=== PATIENT | female | born 1965 | race Caucasian/White ===

== ENCOUNTER 2021-08-25 15:13 | Emergency (ER) | payer OTHER ==
[~2021-08-25] VITALS: Ht 167.6 cm; Wt 67.1 kg
--- NOTE | 2021-08-25 15:20 | NUR ---
SEEN AND EXAMINED BY DR. CUNNINGHAM.
[2021-08-25] MEDS ORDERED: IV NS 0.9% 1,000 ML BAG IV ONE (15:30)
[2021-08-25] MEDS ORDERED: METF-440 PO (15:51)
[2021-08-25] MEDS ORDERED: NPH,100V SQ (15:51)
[2021-08-25] MEDS ORDERED: ATOR40TA PO (15:51)
[2021-08-25 15:57] LABS: BASOPHILS % (AUTO) 0.2 % (0.0-2.0); EOSINOPHILS % (AUTO) 0.3 % (0.0-6.0); HEMATOCRIT 44 % (33-45); HEMOGLOBIN 15.2 g/dL (11.5-14.8); LYMPHOCYTES # (AUTO) 1.4 K/uL (0.8-4.8); LYMPHOCYTES % (AUTO) 21.1 % (20.0-44.0); MEAN CORPUSCULAR HGB CONC 34 g/dl (31.0-36.0); MEAN CORPUSCULAR VOLUME 87 fL (82-100); MONOCYTES # (AUTO) 0.4 K/uL (0.1-1.30); MONOCYTES % (AUTO) 5.7 % (2.0-12.0); NEUTROPHILS % (AUTO) 72.7 % (43.0-81.0); PLATELET COUNT (AUTO) 183 K/uL (150-450); RED BLOOD CELL COUNT(AUTO) 5.12 MIL/uL (4.0-5.2); WHITE BLOOD COUNT (AUTO) 6.9 K/uL (4.3-11.0)
[2021-08-25 16:08] LABS: CALCIUM, SERUM 8.6 mg/dL (8.5-10.1); CARBON DIOXIDE 30 mmol/L (21-32); CHLORIDE 104 mmol/L (98-107); CREATININE 0.7 mg/dL (0.6-1.3); GLUCOSE 328 mg/dL (74-106); POTASSIUM 3.6 mmol/L (3.5-5.1); SODIUM SERUM 141 mmol/L (136-145); UREA NITROGEN, BLOOD 17 mg/dL (7-18)
[2021-08-25 16:14] LABS: ALANINE AMINOTRANSFERASE 37 U/L (12-78); ALBUMIN 3.7 g/dL (3.4-5.0); ALKALINE PHOSPHATASE 97 U/L (46-116); ASPARTATE AMINOTRANSFERASE 16 U/L (15-37); BILIRUBIN,DIRECT 0.1 mg/dL (0.0-0.2); BILIRUBIN,TOTAL 0.5 mg/dL (0.2-1.0); TOTAL PROTEIN, SERUM 6.9 g/dL (6.4-8.2)
--- NOTE | 2021-08-25 16:57 | NUR ---
Daughter called left her phone # [phone] Deya
--- NOTE | 2021-08-25 17:09 | NUR ---
PATIENT IS AXOX4. ADMITTED FOR DIZZINESS ,STROKE ASSESSMENT DONE.SCORE IS ZERO.
--- NOTE | 2021-08-25 17:23 | NUR ---
PATIENT DAUGHTER NEED TO TALK TO DOCTOR,NUMBER GIVEN TO PATIENT IS READY FOR DISCHARGE.PATIENT SISTER WILL SHOWROOM CONSULTANT THE PATIENT.
[2021-08-25 17:29] VITALS: BP 149/73
--- NOTE | 2021-08-25 17:39 | NUR ---
Patient discharged to home in stable condition. Written and verbal after care instructions given . Patient verbalizes understanding of instruction.work note given as requested.IV removed. Catheter intact and site clear. Pressure and 4x4 applied to site. No bleeding noted.Took all belongings.left via priavte car with sister.
== END 2021-08-25 17:42 | disposition home or self-care (01) ==
LOC: ER 15:39
DX: R42 Dizziness and giddiness (principal); E11.9 Type 2 diabetes mellitus without complications; Z79.899 Other long term (current) drug therapy; Z79.84 Long term (current) use of oral hypoglycemic drugs
CPT/HCPCS: 36415; 71045; 80048; 80076; 84484; 85025; 93005; 96360; 99285; J7030